=== PATIENT | female | born 1960 | race African-American/Black ===

== ENCOUNTER 2023-04-17 22:39 | Inpatient (IN) | payer OTHER ==
[~2023-04-17] VITALS: Ht 170.2 cm; Wt 78.0 kg
[2023-04-17] MEDS ORDERED: ONDANSETRON HCL 4MG/2ML INJ IV ONE (23:15)
[2023-04-17] MEDS ORDERED: LEVETIRACETAM 1000MG PREMIX 100 ML IV ONE (23:15)
[2023-04-17] MEDS ORDERED: NICARDIPINE 50 MG in SODIUM CHLORIDE 0.9% 230 ML IV PRN (23:15)
[2023-04-17 23:20] LABS: BASOPHILS % 1.3 % (0.0-2.0); EOSINOPHILS % 4.1 % (0.0-5.0); HEMATOCRIT. 41.5 % (36.0-48.0); HEMOGLOBIN. 13.4 g/dL (12.0-16.0); LYMPHOCYTES % 23.1 % (20.0-50.0); MEAN CORPUSCULAR HEMOGLOBIN 29.4 pg (28.0-32.0); MEAN CORPUSCULAR HGB CONC 32.2 g/dL (31.0-37.0); MEAN CORPUSCULAR VOLUME 91.2 fL (81.0-99.0); MEAN PLATELET VOLUME 8.7 fl (7.4-10.4); MONOCYTES % 6.3 % (2.0-8.0); NEUTROPHILS % 65.2 % (40.0-76.0); PLATELET 356 x1000/uL (130-400); RED BLOOD CELL COUNT 4.55 mill/uL (4.2-5.4); RED CELL DISTRIBUTION WIDTH 13.4 % (11.6-14.6); WHITE BLOOD COUNT 7.3 x1000/uL (4.5-11.0)
[2023-04-17] MEDS: NICARDIPINE 40 MG/200 ML PREMIX 200 ML IV PRN (23:25)
[2023-04-17 23:27] LABS: PROTHROMBIN TIME 10.4 sec (9.6-11.0)
[2023-04-17 23:30] LABS: ALANINE AMINOTRANSFERASE 10 IU/L (10-49); ALBUMIN 4.2 g/dL (3.2-4.8); ASPARTATE AMINOTRANSFERASE 17 IU/L (<34); BILIRUBIN TOTAL 0.3 mg/dL (0.1-1.0); CALCIUM 9.2 mg/dL (8.7-10.4); CARBON DIOXIDE 28 mEq/L (21-32); CHLORIDE 109 mEq/L (98-107); CREATINE KINASE 290 IU/L (34-145); GLUCOSE 102 mg/dL (70-105); POTASSIUM 4.2 mEq/L (3.5-5.1); SODIUM 141 mEq/L (136-145); TROPONIN I HIGH SENSITIVITY 33 ng/L (3.0-34); UREA NITROGEN BLOOD 20 mg/dL (9-23)
[2023-04-17 23:33] LABS: ETHANOL BLOOD < 10 mg/dL (<10)
[2023-04-17 23:39] LABS: CLARITY URINE CLEAR (CLEAR); COLOR URINE YELLOW (YELLOW); GLUCOSE URINE NEGATIVE (NEGATIVE); KETONES URINE NEGATIVE (NEGATIVE); LEUKOCYTE ESTERASE URINE NEGATIVE (NEGATIVE); NITRITE URINE NEGATIVE (NEGATIVE); OCCULT BLOOD URINE NEGATIVE (NEGATIVE); PH URINE 7.5 (4.5-8.0); PROTEIN URINE 1+ (NEGATIVE); SPECIFIC GRAVITY URINE 1.008 (1.005-1.030); UROBILINOGEN URINE 0.2 E.U./dL (0.2-1.0)
[2023-04-17 23:51] LABS: *AMPHETAMINES SCREEN URINE NEGATIVE (NEGATIVE); *BARBITURATES SCREEN URINE NEGATIVE (NEGATIVE); *BENZODIAZEPINES SCREEN URINE NEGATIVE (NEGATIVE); *COCAINE SCREEN URINE NEGATIVE (NEGATIVE); CANNABINOID URINE SCREEN NEGATIVE (NEGATIVE); ECSTASY MDMA SCREEN URINE NEGATIVE (NEGATIVE); METHADONE URINE SCREEN Neg (NEGATIVE); OPIATES URINE SCREEN NEGATIVE (NEGATIVE); PHENCYCLIDINE URINE SCREEN NEGATIVE (NEGATIVE)
[2023-04-18] VITALS (57 sets, daily range): BP systolic 100–167; BP diastolic 52–144; PULSE 63–86; RESP 13–37; TEMP 98–98.6
[2023-04-18] MEDS: SODIUM CHLORIDE 0.9% 1,000 ML IV SCH ×2 (02:45→04:07)
[2023-04-18] MEDS: NICARDIPINE 40 MG/200 ML PREMIX 200 ML IV PRN (03:49)
[2023-04-18 04:25] LABS: BASOPHILS % 1.2 % (0.0-2.0); EOSINOPHILS % 5.6 % (0.0-5.0); HEMATOCRIT. 41.3 % (36.0-48.0); HEMOGLOBIN. 13.3 g/dL (12.0-16.0); LYMPHOCYTES % 27.5 % (20.0-50.0); MEAN CORPUSCULAR HEMOGLOBIN 29.6 pg (28.0-32.0); MEAN CORPUSCULAR HGB CONC 32.3 g/dL (31.0-37.0); MEAN CORPUSCULAR VOLUME 91.5 fL (81.0-99.0); MEAN PLATELET VOLUME 8.4 fl (7.4-10.4); MONOCYTES % 7.7 % (2.0-8.0); PLATELET 344 x1000/uL (130-400); RED BLOOD CELL COUNT 4.51 mill/uL (4.2-5.4); RED CELL DISTRIBUTION WIDTH 13.5 % (11.6-14.6)
[2023-04-18 04:52] LABS: RBC URINE 0-2 /hpf (0-2); WBC URINE 0-2 /hpf (0-2)
[2023-04-18 04:53] LABS: BACTERIA URINE NONE SEEN; SQUAMOUS EPITHELIAL CELL URINE FEW /lpf (RARE/1+)
[2023-04-18] MEDS ORDERED: LEVETIRACETAM 500 MG in SODIUM CHLORIDE 0.9% 100 ML IV SCH (08:15)
[2023-04-18] MEDS ORDERED: LEVETIRACETAM 500MG PREMIX 100 ML IV SCH (09:00)
[2023-04-18] MEDS ORDERED: MORPHINE SULFATE 2 MG/ML CPJ (NOT FOR IM USE) IV NR ×2 (10:15→21:45)
[2023-04-18] MEDS: LEVETIRACETAM 500MG PREMIX 100 ML IV SCH ×3 (10:30→21:28)
[2023-04-18] MEDS: NICARDIPINE 100 MG in SODIUM CHLORIDE 0.9% 60 ML IV PRN ×2 (10:31→13:49)
[2023-04-18 11:06] LABS: CLARITY URINE CLEAR (CLEAR); COLOR URINE YELLOW (YELLOW); GLUCOSE URINE NEGATIVE (NEGATIVE); KETONES URINE NEGATIVE (NEGATIVE); LEUKOCYTE ESTERASE URINE NEGATIVE (NEGATIVE); NITRITE URINE NEGATIVE (NEGATIVE); OCCULT BLOOD URINE NEGATIVE (NEGATIVE); PH URINE 6.5 (4.5-8.0); PROTEIN URINE TRACE (NEGATIVE); SPECIFIC GRAVITY URINE 1.011 (1.005-1.030); UROBILINOGEN URINE 0.2 E.U./dL (0.2-1.0)
[2023-04-18 11:18] LABS: BACTERIA URINE FEW; RBC URINE 0-2 /hpf (0-2); SQUAMOUS EPITHELIAL CELL URINE FEW /lpf (RARE/1+); WBC URINE 0-2 /hpf (0-2); YEAST URINE NONE SEEN
[2023-04-18 11:35] LABS: ALANINE AMINOTRANSFERASE 12 IU/L (10-49); ALBUMIN 3.8 g/dL (3.2-4.8); ASPARTATE AMINOTRANSFERASE 16 IU/L (<34); BILIRUBIN DIRECT 0.1 mg/dL (<=3.0); BILIRUBIN TOTAL 0.4 mg/dL (0.1-1.0); CARBON DIOXIDE 29 mEq/L (21-32); CHLORIDE 110 mEq/L (98-107); CHOLESTEROL 127 mg/dL (<200); CREATINE KINASE 256 IU/L (34-145); CREATININE 1.8 mg/dL (0.6-1.0); GLUCOSE 114 mg/dL (70-105); HDL CHOLESTEROL 32 mg/dL (>65); LDL CHOLESTEROL 96 mg/dL (5-100); POTASSIUM 4.1 mEq/L (3.5-5.1); PROTEIN TOTAL 6.2 g/dL (6.0-8.3); SODIUM 142 mEq/L (136-145); T4 FREE 1.09 ng/dL (0.89-1.76); THYROID STIMULATING HORMONE 1.19 uIU/mL (0.55-4.78); TRIGLYCERIDE 76 mg/dL (0-150); TROPONIN I HIGH SENSITIVITY 33 ng/L (3.0-34); UREA NITROGEN BLOOD 22 mg/dL (9-23)
[2023-04-18] MEDS: DEXT 5%/LACTATED RINGERS 1,000 ML IV SCH (13:50)
[2023-04-18 16:27] LABS: *AMPHETAMINES SCREEN URINE NEGATIVE (NEGATIVE); *BARBITURATES SCREEN URINE NEGATIVE (NEGATIVE); *BENZODIAZEPINES SCREEN URINE NEGATIVE (NEGATIVE); *COCAINE SCREEN URINE NEGATIVE (NEGATIVE); CANNABINOID URINE SCREEN NEGATIVE (NEGATIVE); ECSTASY MDMA SCREEN URINE NEGATIVE (NEGATIVE); METHADONE URINE SCREEN Neg (NEGATIVE); OPIATES URINE SCREEN NEGATIVE (NEGATIVE); PHENCYCLIDINE URINE SCREEN NEGATIVE (NEGATIVE)
[2023-04-18] MEDS: HYDRALAZINE 20MG/ML VIAL IV PRN (18:31)
[2023-04-19] VITALS (99 sets, daily range): BP systolic 83–175; BP diastolic 42–135; PULSE 46–86; RESP 9–30; TEMP 97.9–98.5
[2023-04-19] MEDS: NICARDIPINE 100 MG in SODIUM CHLORIDE 0.9% 60 ML IV PRN ×3 (00:25→18:22)
[2023-04-19] MEDS: HYDRALAZINE 20MG/ML VIAL IV PRN ×2 (04:26→18:22)
[2023-04-19] MEDS ORDERED: LOSA50TA41 PO (07:51)
[2023-04-19] MEDS ORDERED: ROSU20TA2 (07:51)
[2023-04-19] MEDS: LEVETIRACETAM 500MG PREMIX 100 ML IV SCH ×2 (08:00→21:27)
[2023-04-19] MEDS: DEXAMETHASONE 4MG/ML 1ML VIAL IV SCH ×3 (08:00→18:22)
[2023-04-19] MEDS ORDERED: LEVETIRACETAM 500 MG in SODIUM CHLORIDE 0.9% 100 ML IV SCH (08:00)
[2023-04-19] MEDS: DEXT 5%/LACTATED RINGERS 1,000 ML IV SCH ×2 (08:00→23:30)
[2023-04-19] MEDS: AMLODIPINE 10MG TABLET PO SCH (08:04)
[2023-04-19] MEDS: PANTOPRAZOLE SODIUM 40 MG/VIAL IV SCH ×2 (08:04→08:48)
[2023-04-19] MEDS ORDERED: ASPI-1406 MT (09:01)
[2023-04-19] MEDS ORDERED: DILT240C91 MT (09:02)
[2023-04-19] MEDS ORDERED: HYDR-4135 MT (09:03)
[2023-04-19] MEDS ORDERED: METO-539 MT (09:04)
[2023-04-19] MEDS: BENZONATATE 100MG CAPSULE PO PRN ×2 (09:45→21:27)
[2023-04-19] MEDS: LOSARTAN 50 MG TABLET PO SCH (15:03)
[2023-04-19] MEDS: HYDRALAZINE HCL 50MG TABLET PO SCH ×2 (15:03→21:27)
[2023-04-19] MEDS: DILTIAZEM HCL 120MG CAPSULE ER 24HR PO SCH (15:05)
[2023-04-19] MEDS: METOPROLOL TARTRATE 50MG TABLET PO SCH (21:26)
[2023-04-20] VITALS (62 sets, daily range): BP systolic 76–148; BP diastolic 42–115; PULSE 44–74; RESP 9–34; TEMP 97.8–98.2
[2023-04-20] MEDS: DEXAMETHASONE 4MG/ML 1ML VIAL IV SCH ×4 (00:30→18:00)
[2023-04-20 06:09] LABS: HEMATOCRIT. 43.2 % (36.0-48.0); HEMOGLOBIN. 14.2 g/dL (12.0-16.0); MEAN CORPUSCULAR HGB CONC 32.9 g/dL (31.0-37.0); MEAN CORPUSCULAR VOLUME 91.2 fL (81.0-99.0); MEAN PLATELET VOLUME 9.3 fl (7.4-10.4); PLATELET 435 x1000/uL (130-400); RED BLOOD CELL COUNT 4.74 mill/uL (4.2-5.4); RED CELL DISTRIBUTION WIDTH 13.4 % (11.6-14.6); WHITE BLOOD COUNT 7.7 x1000/uL (4.5-11.0)
[2023-04-20 06:22] LABS: DIFFERENTIAL COMMENT 1
[2023-04-20 06:44] LABS: CALCIUM 9.1 mg/dL (8.7-10.4); CREATININE 2.1 mg/dL (0.6-1.0); POTASSIUM 4.9 mEq/L (3.5-5.1)
[2023-04-20] MEDS: LOSARTAN 50 MG TABLET PO SCH (08:38)
[2023-04-20] MEDS: PANTOPRAZOLE SODIUM 40 MG/VIAL IV SCH (08:38)
[2023-04-20] MEDS: AMLODIPINE 10MG TABLET PO SCH (08:38)
[2023-04-20] MEDS: DILTIAZEM HCL 120MG CAPSULE ER 24HR PO SCH (08:40)
[2023-04-20] MEDS: LEVETIRACETAM 500MG PREMIX 100 ML IV SCH (08:47)
[2023-04-20] MEDS: METOPROLOL TARTRATE 50MG TABLET PO SCH (09:39)
[2023-04-20 11:15] LABS: TROPONIN I HIGH SENSITIVITY 9 ng/L (3.0-34)
[2023-04-20] MEDS: DEXT 5%/LACTATED RINGERS 1,000 ML IV SCH (15:46)
[2023-04-20 17:09] LABS: PLATELET ESTIMATE INCREASED
[2023-04-21 14:19] VITALS: BP 120/80; PULSE 78; TEMP 98; O2SAT 98
== END 2023-04-20 20:00 | disposition short-term general hospital (02) | DRG 65 ==
LOC: ER 22:39 → MICUSO 04-18 01:40 → EDBEDREQDT 04-18 01:44 → EDBEDREQ 04-18 01:44 → EDBEDREQTM 04-18 01:44 → EDBEDREQSVC 04-18 01:44 → MICUSO 04-18 09:05
PROVIDERS: ADMIT Preventive Medicine Clinical Informatics; ATTEND Preventive Medicine Clinical Informatics
PROC: 5A1935Z Respiratory Ventilation, Less than 24 Consecutive Hours (ICD-10-PCS; principal; 2023-04-20)
DX: I62.9 Nontraumatic intracranial hemorrhage, unspecified (principal); G81.91 Hemiplegia, unspecified affecting right dominant side; I16.1 Hypertensive emergency; N18.32 Chronic kidney disease, stage 3b; R29.810 Facial weakness; R29.708 NIHSS score 8; E78.5 Hyperlipidemia, unspecified; F17.210 Nicotine dependence, cigarettes, uncomplicated; I12.9 Hypertensive chronic kidney disease with stage 1 through stage 4 chronic kidney disease, or unspecified chronic kidney disease; Z53.20 Procedure and treatment not carried out because of patient's decision for unspecified reasons
CPT/HCPCS: 36415; 71045; 80048; 80053; 80061; 80076; 80305; 80320; 81003; 82550; 83605; 84439; 84443; 84484; 85025; 92610; 93005; 93306; 97166; 99291; C9113; J0360; J1100; J1953; J2270; J2405; J3490; J7030; J7050; J7121; G0480